=== PATIENT | male | born 1960 | race African-American/Black ===

== ENCOUNTER 2017-06-29 09:26 | Emergency (ER) | payer OTHER ==
[~2017-06-29] VITALS: Ht 180.3 cm; Wt 121.4 kg
[~2017-06-29 09:26] MED LIST: ALTACE10 MG PO; ALTACE5 MG PO; AMLODIPINE BESYL5 MG PO; ASPIRIN325 MG PO; BENEMID PO; Colchicine,Colcrys PO; Coumadin,Jantoven PO; GLYBURIDE-METF1 EAC3 PO; GLYBURIDE-METF1 EACH PO; Lidoderm 5% Patch TD; Lopressor PO; METOPROLOL TART50 MG PO; NAPROSYN500 MG PO; OXYCODONE HCL5 MG PO; PROBENECID500 MG PO; Percocet 5/325,Endoc PO; THEO-24300 MG PO; VIAGRA50 MG PO; Xanax PO; [UNRECOGNIZED DRUG - OTHER] PO
[2017-06-29 10:16] LABS: HEMATOCRIT 39.7 % (38.0-50.0); HEMOGLOBIN 13.1 G/DL (12.5-16.6); MCH 26.6 PG (29.0-34.0); MCV 80.5 FL (86-99); PLATELET COUNT 186 K/uL (156-360); RBC DIS.WIDTH-CV 13.9 % (11.8-14.6); RBC DIS.WIDTH-SD 40.7 % (39-53); RED BLOOD COUNT 4.93 M/uL (4.00-5.50); WHITE BLOOD COUNT 7.9 K/uL (4.1-10.2)
[2017-06-29 10:27] LABS: CHLORIDE 103 mEq/L (99-109); POTASSIUM 3.8 mEq/L (3.7-5.4); SODIUM 137 mEq/L (136-147)
[2017-06-29 10:28] LABS: GLUCOSE 211 mg/dL (70-99)
[2017-06-29 10:32] LABS: CREATININE 1.1 mg/dL (0.6-1.3); GFR ESTIMATE (CALCULATED) > 59 mL/min/ (58.99-99999)
[2017-06-29 10:33] LABS: UREA NITROGEN (BUN) 12 mg/dL (9-23)
[2017-06-29 11:00] VITALS: BP 140/82
== END 2017-06-29 11:03 | disposition home or self-care (01) ==
LOC: EME 09:26
PROVIDERS: Nurse Practitioner Family
DX: H00.14 Chalazion left upper eyelid (principal); E11.65 Type 2 diabetes mellitus with hyperglycemia; Z79.84 Long term (current) use of oral hypoglycemic drugs; I10 Essential (primary) hypertension; E78.5 Hyperlipidemia, unspecified; J44.9 Chronic obstructive pulmonary disease, unspecified; Z96.652 Presence of left artificial knee joint; Z98.1 Arthrodesis status; Z88.0 Allergy status to penicillin; Z79.82 Long term (current) use of aspirin
CPT/HCPCS: 80048; 85027; 99281; 99284